=== PATIENT | male | born 1965 ===

== ENCOUNTER 2018-09-23 05:36 | Day surgery (SDC) | payer MEDICARE, OTHER ==
--- NOTE | 2018-09-22 17:45 | Pre-op HX & Phy Repo 2 SIG ---
DATE OF ADMISSION: 09/23/2018 DATE OF SURGERY: 09/23/2018 PREOPERATIVE DIAGNOSIS: Nonclearing vitreous hemorrhage, left eye. BRIEF NOTE: This is the second [place] admission for the patient who is a very nice 52-year-old gentleman with a history of significant diabetic retinopathy in both eyes. He underwent vitrectomy in the right eye in November of 2015 with good result. The left eye has been treated with prior laser treatment and injections, but developed a significant vitreous hemorrhage in July of 2018, which has failed to clear after injections and 2 months of observation. He is admitted for vitrectomy on that side. PAST MEDICAL HISTORY: Remarkable for diabetes since 1995, he is on dialysis, and also has hypertension. CURRENT MEDICATIONS: Include atenolol, glipizide, metformin, and simvastatin. ALLERGIES: He has no known allergies. PHYSICAL EXAMINATION: Best vision at the time of admission was 20/70 in the right eye and hand motions on the left with pressures of 14 and 13. The anterior segment on the right showed nuclear cataract. The left showed similar cataract as well as a pterygium. Fundus exam of the right eye showed a moderate epiretinal membrane. There was a previously treated retinal tear at 10 o'clock position as well as widespread panretinal photocoagulation. The left fundus showed a vitreous hemorrhage, fairly dense. The ultrasound showed the retina to be all attached. ASSESSMENT: Nonclearing vitreous hemorrhage, left eye. PLAN: The plan is to perform a pars plana vitrectomy with membrane dissection as needed, endolaser, and possible gas fluid exchange. Avastin was given prior to the surgery and will likely not be needed during the operation. The risks and benefits of surgery gone over with the patient including potential infection, hemorrhage, glaucoma, remote possibility of loss of the eye. The risk of anesthesia was discussed. The patient understands and consents to the surgery, which will be performed tomorrow morning. Kip Benito M.D. DR: DEEDEE JOB#: [id number] CC:
[2018-09-23] VITALS (9 sets, daily range): BP systolic 155–175; BP diastolic 73–88
[~2018-09-23] VITALS: Ht 167.6 cm; Wt 81.6 kg
[~2018-09-23 05:36] MED LIST: ATENOLOL50 MG ORAL; GLIPIZIDE5 MG ORAL; LIPITOR40 MG ORAL; LISINOPRIL20 MG ORAL; NIFEDIPINE ER90 M3 ORAL; RENVELA800 MG ORAL
[2018-09-23] MEDS ORDERED: Pred Forte 1% Opth Susp 1ml LEFT EYE SCH (06:00)
[2018-09-23] MEDS: Cyclopentolate 1% Opth Sol 2ml LEFT EYE SCH ×3 (06:18→06:45)
[2018-09-23] MEDS: Phenylephrine 2.5% Op 2ml Soln LEFT EYE SCH ×3 (06:19→06:45)
[2018-09-23] MEDS: Flurbiprofen 0.03% Opth Sol 2.5ml LEFT EYE SCH ×3 (06:19→06:45)
[2018-09-23] MEDS: Vigamox Opth Soln 3ml LEFT EYE SCH ×3 (06:19→06:45)
[2018-09-23 06:57] LABS: BASOPHILS % (AUTO) 1.2 % (0.0-2.0); EOSINOPHILS % (AUTO) 3.1 % (0.0-3.0); HEMATOCRIT 28.2 % (42.0-52.0); HEMOGLOBIN 9.6 G/DL (14.2-18.0); LYMPHOCYTES % (AUTO) 18.8 % (20.0-45.0); MEAN CORPUSCULAR VOLUME 95 FL (80-99); NEUTROPHILS % (AUTO) 67.8 % (45.0-75.0); PLATELET COUNT 108 K/UL (150-450); RED BLOOD COUNT 2.98 M/UL (4.70-6.10); RED CELL DISTRIBUTION WIDTH 13.2 % (11.6-14.8); WHITE BLOOD COUNT 5.3 K/UL (4.8-10.8)
[2018-09-23] MEDS ORDERED: Propofol 200mg/20ml IV ONE (07:00)
[2018-09-23] MEDS ORDERED: fentaNYL 100 mcg/2 mL IV ONE (07:00)
[2018-09-23] MEDS ORDERED: Midazolam 2mg/2ml Inj ONE (07:00)
[2018-09-23] MEDS ORDERED: Lidocaine 2% MPF 5ml Vial INJ ONE (07:10)
[2018-09-23] MEDS ORDERED: EPINEPHrine 1mg/1ml Amp ONE (07:10)
[2018-09-23] MEDS ORDERED: BSS 15ml BTL ONE (07:11)
[2018-09-23] MEDS ORDERED: Pred Forte 1% Opth Susp 1ml ONE (07:11)
[2018-09-23] MEDS ORDERED: Maxitrol Opth Oint 3.5gm ONE (07:11)
[2018-09-23] MEDS ORDERED: Dexamethasone 4mg/ml vial ONE (07:11)
[2018-09-23] MEDS ORDERED: Kenalog-10 5ml Inj ONE (07:11)
[2018-09-23] MEDS ORDERED: Kenalog-40 1ml Vial ONE (07:11)
[2018-09-23] MEDS ORDERED: BSS 500ml btl ONE (07:11)
[2018-09-23] MEDS ORDERED: Povidone-Iodine 5% opth solution ONE (07:12)
[2018-09-23] MEDS ORDERED: Tetracaine 0.5% Opth 4ml Soln ONE (07:12)
[2018-09-23] MEDS ORDERED: Sodium Hyaluronate 10 mg/ml 0.85ml ONE (07:12)
[2018-09-23] MEDS ORDERED: Bupivacaine 0.75% 30ml vial INJ ONE (07:12)
[2018-09-23 07:20] LABS: ANION GAP 9 mmol/L (5-15); BLOOD UREA NITROGEN 41 mg/dL (7-18); CALCIUM 9.3 MG/DL (8.5-10.1); CARBON DIOXIDE 29 MMOL/L (21-32); CHLORIDE 102 MMOL/L (98-107); CREATININE 9.5 MG/DL (0.55-1.30); SODIUM 140 MMOL/L (136-145)
[2018-09-23] MEDS ORDERED: fentaNYL 100 mcg/2 mL IV PRN (07:30)
[2018-09-23] MEDS ORDERED: NS Irrig 1000ml ONE (07:30)
[2018-09-23] MEDS ORDERED: Sterile Water Irrig 1000ml IRRIG ONE (07:30)
--- NOTE | 2018-09-23 07:30 | Anethesia Preoperative Eval ---
Anesthesia Pre-op PMH/ROS General Date of Evaluation: Sep 23, 2018 Time of Evaluation: 07:26 Anesthesiologist: Jonathan ASA Score: ASA 3 Mallampati Score Class I : Soft palate, uvula, fauces, pillars visible Class II: Soft palate, uvula, fauces visible Class III: Soft palate, base of uvula visible Class IV: Only hard plate visible Mallampati Classification: Class II Surgeon: Jigna Diagnosis: L eye vitreous hemorrhage Surgical Procedure: L eye PPV Anesthesia History: none Family History: no anesthesia problems Allergies: Coded Allergies: No Known Allergies (Unverified , 11/21/15) Medications: see eMAR Patient NPO?: Yes Past Medical History Cardiovascular: Reports: HTN; Denies: CAD, [place], valve dz, arrhythmia, other Pulmonary: Denies: asthma, COPD, THANG, other Gastrointestinal/Genitourinary: Reports: GERD, ESRD - on HD last session 09/21/18 ; Denies: CRI, other Neurologic/Psychiatric: Reports: depression/anxiety; Denies: dementia, CVA, TIA, other Endocrine: Reports: DM, hypothyroidism HEENT: Denies: cataract (L), cataract (R), glaucoma, [place] (L), [place] (R), other Hematology/Immune: Reports: anemia - mild Musculoskeletal/Integumentary: Denies: OA, RA, DJD, DDD, edema, other PMH Narrative: as above PSxH Narrative: R eye Sx Anesthesia Pre-op Phys. Exam Physician Exam Last Vital Signs Date Time Temp Pulse Resp B/P (MAP) Pulse Ox O2 Delivery O2 Flow Rate FiO2 09/23/18 06:35 Room Air 09/23/18 06:20 97.7 72 20 175/80 98 Constitutional: NAD Neurologic: CN 2-12 intact Cardiovascular: RRR Respiratory: CTA Gastrointestinal: S/NT/ND Airway Exam Mallampati Score: Class II MO: limited Neck: stiff ROM: limited Teeth: missing Dentures: no upper, no lower Anesthesia Pre-op A/P Labs Hematology Test 09/23/18 06:30 White Blood Count 5.3 K/UL (4.8-10.8) Red Blood Count 2.98 M/UL (4.70-6.10) L Hemoglobin 9.6 G/DL (14.2-18.0) L Hematocrit 28.2 % (42.0-52.0) L Mean Corpuscular Volume 95 FL (80-99) Mean Corpuscular Hemoglobin 32.1 PG (27.0-31.0) H Mean Corpuscular Hemoglobin Concent 34.0 G/DL (32.0-36.0) Red Cell Distribution Width 13.2 % (11.6-14.8) Platelet Count 108 K/UL (150-450) L Mean Platelet Volume 12.1 FL (6.5-10.1) H Neutrophils (%) (Auto) 67.8 % (45.0-75.0) Lymphocytes (%) (Auto) 18.8 % (20.0-45.0) L Monocytes (%) (Auto) 9.0 % (1.0-10.0) Eosinophils (%) (Auto) 3.1 % (0.0-3.0) H Basophils (%) (Auto) 1.2 % (0.0-2.0) Chemistry Test 09/23/18 06:30 Sodium Level 140 MMOL/L (136-145) Potassium Level 5.0 MMOL/L (3.5-5.1) Chloride Level 102 MMOL/L (98-107) Carbon Dioxide Level 29 MMOL/L (21-32) Anion Gap 9 mmol/L (5-15) Blood Urea Nitrogen 41 mg/dL (7-18) H Creatinine 9.5 MG/DL (0.55-1.30) H Estimat Glomerular Filtration Rate 5.9 mL/min (>60) Glucose Level 119 MG/DL (74-106) H Calcium Level 9.3 MG/DL (8.5-10.1) Studies Pre-op Studies: EKG - SR Risk Assessment & Plan Assessment: ASA 3 Plan: MAC with Retrobulbar block Status Change Before Surgery: No Pre-Antibiotics Drug: none Erasmo Castillo MD Sep 23, 2018 07:30
--- NOTE | 2018-09-23 07:44 | Pre-Procedure Note/Attestation ---
Pre-Procedure Note/Attestation Complete Prior to Procedure Planned Procedure: left Procedure Narrative: PPV, membrane peel, endolaser Left eye Indications for Procedure Pre-Operative Diagnosis: VItreous heme L eye Attestation I attest that I discussed the nature of the procedure; its benefits; risks and complications; and alternatives (and the risks and benefits of such alternatives ), prior to the procedure, with the patient (or the patient's legal sales representative graphic art). I attest that, if there was a reasonable possibility of needing a blood transfusion, the patient (or the patient's legal sales representative graphic art) was given the [facility] standardized written summary, pursuant to the Kristofer Johnie Blood Safety Act ([place] Health and Safety Code # 1645, as amended). I attest that I re-evaluated the patient just prior to the surgery and that there has been no change in the patient's H&P, except as documented below: Kip Benito MD Sep 23, 2018 07:44
--- NOTE | 2018-09-23 08:42 | Immediate Post-Op Evaluation ---
Immediate Post-Op Evalulation Immediate Post-Op Evalulation Procedure: L eye PPV, membrane peel laser treatment Date of Evaluation: Sep 23, 2018 Time of Evaluation: 08:41 IV Fluids: 250 Blood Products: none Estimated Blood Loss: min Urinary Output: none Blood Pressure Systolic: 162 Blood Pressure Diastolic: 84 Pulse Rate: 68 Respiratory Rate: 20 O2 Sat by Pulse Oximetry: 98 Temperature (Fahrenheit): 97.6 Pain Score (1-10): 1 Nausea: No Vomiting: No Complications none Patient Status: awake, patent, none Hydration Status: adequate Erasmo Castillo MD Sep 23, 2018 08:42
--- NOTE | 2018-09-23 08:44 | Brief Operative Note ---
Immediate Post Operative Note Operative Note Chief Complaint: Clouds in vision Left eye Pre-op Diagnosis: VItreous heme L eye Procedure: PPV, Endolaser Left eye (1772 spots) Post-op Diagnosis: same as pre-op Surgeon: gia Anesthesiologist: ALFREDO Anesthesia: MAC Specimen: none Complications: none Condition: stable Fluids: per anesthesia Estimated Blood Loss: none Drains: none Implant(s) used?: No Kip Benito MD Sep 23, 2018 08:44
--- NOTE | 2018-09-23 09:57 | 48 Hour Post Anesthesia Eval ---
Post Anesthesia Evaluation Procedure: L eye PPV, membrane peel laser treatment Date of Evaluation: Sep 23, 2018 Time of Evaluation: 09:56 Blood Pressure Systolic: 156 0: 78 Pulse Rate: 64 Respiratory Rate: 20 Temperature (Fahrenheit): 97.6 O2 Sat by Pulse Oximetry: 98 Airway: patent Nausea: No Vomiting: No Pain Intensity: 1 Hydration Status: adequate Cardiopulmonary Status: stable Mental Status/LOC: patient returned to baseline Follow-up Care/Observations: n/a Post-Anesthesia Complications: none Follow-up care needed: ready to discharge Erasmo Castillo MD Sep 23, 2018 09:57
--- NOTE | 2018-09-23 15:15 | Cardiology Report ---
APPROVED REPORT EKG Measurement Heart [id number] Normal sinus rhythm Possible Left atrial enlargement Nonspecific ST abnormality Abnormal ECG
[2018-09-23] MEDS ORDERED: Norco 5mg/325mg tab ORAL PRN (16:01)
--- NOTE | 2018-09-23 16:16 | Pre-op HX & Phy Repo 2 SIG ---
DATE OF ADMISSION: 09/23/2018 PRESURGICAL INTERNAL MEDICINE HISTORY AND PHYS REASON FOR EVALUATION: I was asked by Dr. Kip Benito to see 52-year-old male, who going for elective surgery on the left eye. The patient has vitreous hemorrhage, left eye. Please see full Ophthalmology History and Physical by Dr. Kip Benito. The patient was evaluated. Chart was reviewed at [facility] Outpatient Procedure Department. PAST MEDICAL HISTORY AND REVIEW OF SYSTEMS: Remarkable for history of hypertension, diabetes mellitus type 2, and end-stage renal disease, on hemodialysis, last dialysis on 09/21/2018. Denies history of chest pain, palpitation, or heart attack. No history of stroke or seizures. There is no history of anemia. No thyroid problem. No respiratory problem, bronchitis, asthma, or emphysema. No history of stroke or prostate problem. No hepatitis or stomach problem. PAST SURGICAL HISTORY: Remarkable for left foot two-toe amputee and right eye surgery two years ago. FAMILY HISTORY: Both parents , complication of diabetes mellitus. ALLERGIES: Not known. PRESENT MEDICATIONS: Includes atenolol 50 mg, atorvastatin, glipizide 5 mg, lisinopril 20 mg, nifedipine 90 mg, Renvela 800 mg daily. The patient dialyze three times a week. SOCIAL HISTORY: Denies history of smoke or alcohol habits or street drugs. PHYSICAL EXAMINATION: GENERAL: The patient is alert, well-developed, and well-nourished male, in his 50s. No acute distress. VITAL SIGNS: Blood pressure 175/80, temperature 97, pulse 72, respirations 20, and O. saturation 98% on room air. SKIN: Clear and dry. No rashes or open wounds. LYMPH NODES: Not enlarged. HEENT: Head, normocephalic. Ears, no discharge. No hearing impairment. Eyes, full description per Dr. Kip Benito. Mouth, partial dentures. Mucous, clear. No discharge. Tongue was midline. NECK: Supple. No jugular venous distention. Carotid artery +2. Trachea midline. CHEST: No deformity or asymmetry. LUNGS: Clear to auscultation and percussion. No rales or rhonchi. HEART: Sinus rhythm. No ectopy. No murmur. No S., S.. ABDOMEN: Soft and benign. Liver and spleen not enlarged. No rebound. EXTREMITIES: No peripheral edema. AV shunt, left arm. On left foot, two-toe amputee. No calf tenderness. No varicose vein. GENITOURINARY TRACT: Normal for gender. The patient is on dialysis. No dysuria. No CVA tenderness. CENTRAL NERVOUS SYSTEM: No nystagmus. No asymmetry. LABORATORY AND DIAGNOSTIC DATA: ECG, normal sinus rhythm at 73 per minute and nonspecific ST abnormality. Laboratory, high blood sugar 126. Sodium 147, potassium 5.5, BUN 50, creatinine 9.4, . White blood cells 9.2, hemoglobin 12.0, hematocrit . IMPRESSION: 1. Vitreous hemorrhage, left eye. 2. Hypertension. 3. Diabetes mellitus, type 2, controlled. 4. Anemia. 5. End-stage renal disease, on hemodialysis. 6. ECG, nonspecific ST abnormality. The patient did not eat from 4 Ap.Dm. yesterday. PLAN: Pars plana vitrectomy, membrane peel, endolaser, left eye per Dr. Kip Benito. CONCLUSION: The patient is a 52-year-old male with multiple medical problems include diabetes mellitus; end-stage renal disease, on hemodialysis; hyperkalemia, mild; and hypertension, not fully controlled. The patient did not eat or drink from 4 Ap.Dm. yesterday. The patient is going for the dialysis today. The patient's condition optimized for surgery. Thank you very much, Dr. Benito, for the privilege to participate in presurgical care of this interesting patient. Anurag Mak M.D. DR: VALENTINA JOB#: [id number] CC:
--- NOTE | 2018-09-23 16:31 | Operative Note - Dictated ---
DATE OF OPERATION: 09/23/2018 PREOPERATIVE DIAGNOSIS: Nonclearing vitreous hemorrhage, left eye. POSTOPERATIVE DIAGNOSIS: Nonclearing vitreous hemorrhage, left eye. PROCEDURES: 1. Pars plana vitrectomy. 2. Endolaser, left eye. SURGEON: Kip Benito M.D. LSAT INSTRUCTOR: None. ANESTHESIA: Local sedation. ANESTHESIOLOGIST: Erasmo Castillo M.D. JUSTIFICATION FOR SURGERY: This 52-year-old gentleman with a long history of diabetes and renal failure, developed a vitreous hemorrhage late last year, which has failed to clear. BRIEF NOTE: The patient was brought to the operating room and placed on the OR table in supine position. After a time-out was performed and agreed upon by the staff, and initial monitoring secured by Dr. Castillo, retrobulbar and Van Lint blocks were given to the left eye in the standard way. When the blocks taken effect, he was prepped and draped in normal manner. A lid speculum inserted into the left eye. Using a 23-gauge trocar system, cannulas were placed in all except infranasal quadrant. Infusion was secured inferotemporally. Vitrectomy was begun posterior to the lens taking care to avoid contact. A central core vitrectomy was done followed by peripheral vitrectomy leaving a relatively small vitreous skirt. Blood on the surface of the retina was gently evacuated with mild suction. No significant traction or open bleeders were noted. The endolaser was brought into the eye and a power of 0.3 padilla, duration 0.1 second, a total of 1772 lesions were applied in a broad band in the far periphery to lightly treat retina that had been obscured by blood. No problems were encountered. The pressure was lowered and scleral depression was performed showing no evidence of tears or detachment. The instruments were removed from the eye and each sclerotomy was closed with a single suture of 8-0 Vicryl with the knots buried. Subconjunctival Decadron and gentamicin were then injected inferiorly and topical atropine drops, prednisolone drops, Vigamox drops, and Maxitrol ointment were instilled. The eye was patched and shielded. The patient was taken to Recovery in excellent condition. There were no complications. Kip Benito M.D. DR: NEREYDA JOB#: [id number] CC: Kip Benito M.D.; Fax#: [phone]
== END 2018-09-23 09:50 | disposition home or self-care (01) ==
LOC: SUR 05:36
DX: H43.12 Vitreous hemorrhage, left eye (principal); E11.319 Type 2 diabetes mellitus with unspecified diabetic retinopathy without macular edema; E11.22 Type 2 diabetes mellitus with diabetic chronic kidney disease; I12.0 Hypertensive chronic kidney disease with stage 5 chronic kidney disease or end stage renal disease; N18.6 End stage renal disease; Z99.2 Dependence on renal dialysis; D64.9 Anemia, unspecified; E87.5 Hyperkalemia; K21.9 Gastro-esophageal reflux disease without esophagitis; F32.9 Major depressive disorder, single episode, unspecified; F41.9 Anxiety disorder, unspecified; E03.9 Hypothyroidism, unspecified
CPT/HCPCS: 36415; 67039; 80048; 82962; 85025; 93005; J0171; J1100; J2250; J2704; J3010; J3470; J3490